=== PATIENT | female | born 1950 | race Caucasian/White ===

== ENCOUNTER 2020-01-15 19:53 | Emergency (ER) | payer MEDICARE, OTHER ==
--- NOTE | 2020-01-15 20:43 | EDM.PDOC ---
ED HPI GENERAL MEDICAL PROBLEM - General Chief Complaint: Cardiovascular Problem Stated Complaint: HEART ISSUES Time Seen by Provider: 01/15/20 20:20 Source of Information: Reports: Patient History Limitations: Reports: No Limitations - History of Present Illness INITIAL COMMENTS - FREE TEXT/NARRATIVE: 69-year-old female that had an MN and a stent last fall, recently had an increase in her losartan just under 2 weeks ago. She has been feeling well but since being out of the cabin for the last 3 days she has had some intermittent dizziness, weakness, and her monitor has been seeing her heart rate is irregular. She has had no chest pain or shortness of breath, mild nausea but no vomiting, no fevers or chills, no diarrhea, no peripheral edema. She was having some of the symptoms before she left but discussed it with her environmental services floor tech and he reassured her that she was probably play fine to go for the weekend. Tonight she just got too worried and came in. On arrival she looks excellent, vitals are normal, and she is comfortable and asymptomatic. Onset: Unknown/Unsure Associated Symptoms: Reports: Nausea/Vomiting (Mild intermittent nausea), Weakness. Denies: Confusion, Chest Pain, Cough, Fever/Chills, Headaches, Shortness of Breath - Related Data Allergies Allergy/AdvReac Type Severity Reaction Status Date / Time cyclobenzaprine Allergy Swollen Verified 01/15/20 20:14 [From Flexeril] Tongue levofloxacin [From Levaquin] Allergy Rectal Verified 01/15/20 20:14 Bleeding Penicillins Allergy Rash Verified 01/15/20 20:14 Home Meds: Home Meds Aspirin 81 mg PO DAILY 01/15/20 [History] Clopidogrel [Plavix] 75 mg PO DAILY 01/15/20 [History] Losartan [Cozaar] 25 mg PO DAILY 01/15/20 [History] Metoprolol Tartrate [Lopressor] 12.5 mg PO Q12HR 01/15/20 [History] amLODIPine [Norvasc] 5 mg PO DAILY 01/15/20 [History] Past Medical History HEENT History: Reports: Cataract Cardiovascular History: Reports: Arrhythmia, High Cholesterol, Hypertension, MN , Stents Other Cardiovascular History: MN 06/2019 Genitourinary History: Reports: Renal Calculus 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: Musculoskeletal History: Reports: Back Pain, Chronic Neurological History: Reports: Concussion, Migraines - Infectious Disease History Infectious Disease History: Reports: Chicken Pox, Measles - Past Surgical History HEENT Surgical History: Reports: Cataract Surgery Cardiovascular Surgical History: Reports: Coronary Artery Stent Female Surgical History: Reports: Section, Hysterectomy Social & Family History - Tobacco Use Smoking Status *Q: Never Smoker - Caffeine Use Caffeine Use: Reports: Coffee Caffeine Use Comment: coffee on Tuesdays - Recreational Drug Use Recreational Drug Use: No ED ROS GENERAL - Review of Systems Review Of Systems: See Below Constitutional: Reports: Malaise. Denies: Fever, Chills HEENT: Reports: No Symptoms Respiratory: Denies: Shortness of Breath, Pleuritic Chest Pain, Cough Cardiovascular: Reports: Palpitations (Mild intermittent palpitations). Denies : Chest Pain GI/Abdominal: Reports: Nausea. Denies: Vomiting : Reports: No Symptoms Skin: Reports: No Symptoms Neurological: Reports: Dizziness Psychiatric: Reports: No Symptoms ED EXAM, GENERAL - Physical Exam Exam: See Below Exam Limited By: No Limitations General Appearance: Alert, No Apparent Distress Eye Exam: Bilateral Eye: Normal Inspection Head: Atraumatic Neck: No: Carotid Bruit Respiratory/Chest: No Respiratory Distress, Lungs Clear Cardiovascular: Regular Rate, Rhythm, Extra Beats (Patient had 1 ectopic beat over the course of a full minute on auscultation, otherwise normal regular rhythm) GI/Abdominal: Soft, Non-Tender Extremities: Normal Inspection. No: Pedal Edema Neurological: Alert, Oriented, No Motor/Sensory Deficits Psychiatric: Normal Affect, Normal Mood Skin Exam: Warm, Dry Course - Vital Signs Last Recorded V/S: Last Vital Signs Temp 96.4 F L 01/15/20 20:17 Pulse 56 L 01/15/20 21:10 Resp 16 01/15/20 21:10 BP 140/77 01/15/20 21:10 Pulse Ox 99 01/15/20 21:10 - Orders/Labs/Meds Labs: Laboratory Tests 01/15/20 01/15/20 Range/Units 20:48 20:48 WBC 8.7 (4.5-11.0) K/uL RBC 4.97 (3.30-5.50) M/uL Hgb 13.9 (12.0-15.0) g/dL Hct 44.1 (36.0-48.0) % MCV 89 (80-98) fL MCH 28 (27-31) pg MCHC 32 (32-36) % Plt Count 363 (150-400) K/uL Neut % (Auto) 44 (36-66) % Lymph % (Auto) 38 (24-44) % Crisp % (Auto) 14 H (2-6) % Eos % (Auto) 3 (2-4) % Baso % (Auto) 1 (0-1) % Sodium 140 (140-148) mmol/L Potassium 4.2 (3.6-5.2) mmol/L Chloride 105 (100-108) mmol/L Carbon Dioxide 24 (21-32) mmol/L Anion Gap 11.2 (5.0-14.0) mmol/L BUN 23 H (7-18) mg/dL Creatinine 1.0 (0.6-1.0) mg/dL Est Cr Clr Drug Dosing 43.30 mL/min Estimated GFR (MDRD) 55 L (>60) Glucose 103 (74-106) mg/dL Calcium 8.6 (8.5-10.1) mg/dL Troponin I < 0.017 (0.000-0.056) ng/mL - Re-Assessments/Exams Free Text/Narrative Re-Assessment/Exam: 01/15/20 20:42 Had a long discussion with the patient about the likelihood of her being healthier than she feels especially with her current presentation with normal vitals and normal exam. She may be having some mild hypotension with the increase losartan or brief arrhythmias which are not occurring currently. We will draw CBC a BMP and troponin for reassurance. She will be kept on cardiac monitoring while awaiting lab results. 01/15/20 21:22 Patient remained asymptomatic and stable while in the emergency room, monitor showed occasional PVCs. Troponin is 0, CBC is normal, and electrolytes are normal. She has a slight elevation in BUN and minimal decrease in GFR, mild dehydration is possible so staying hydrated will be recommended. Otherwise activity as tolerated. Departure - Departure Time of Disposition: 21:29 Disposition: Home, Self-Care 01 Clinical Impression: Dizziness Instructions: Dizziness, [id number] Referrals: PCP,None [Primary Care Provider] - Forms: ED Department Discharge Care Plan Goals: Continue your current medications, stay hydrated, and increase activity as tolerated. Return anytime if worsening such as increased shortness of breath or chest pain. Consider rechecking with your environmental services floor tech or regular provider next week if symptoms are persistent. Sepsis Event Note - Evaluation Sepsis Screening Result: No Definite Risk - Focused Exam Vital Signs: Vital Signs Temp Pulse Resp BP Pulse Ox 01/15/20 21:10 56 L 16 140/77 99 01/15/20 20:46 64 16 163/90 H 96 01/15/20 20:17 96.4 F L 57 L 16 161/83 H 98 01/15/20 20:11 96.4 F L 57 L 16 161/83 H 98 Date Exam was Performed: 01/15/20 Time Exam was Performed: 22:16
== END 2020-01-15 21:34 | disposition home or self-care (01) ==
LOC: JP.ED 19:53
DX: R42 Dizziness and giddiness (principal); I10 Essential (primary) hypertension; I25.2 Old myocardial infarction; Z88.8 Allergy status to other drugs, medicaments and biological substances; Z88.1 Allergy status to other antibiotic agents; Z88.0 Allergy status to penicillin; Z79.02 Long term (current) use of antithrombotics/antiplatelets; Z79.82 Long term (current) use of aspirin; Z79.899 Other long term (current) drug therapy; Z95.5 Presence of coronary angioplasty implant and graft
CPT/HCPCS: 36415; 80048; 84484; 85025; 99283; 99284

== ENCOUNTER 2023-03-28 12:34 | Emergency (ER) | payer MEDICARE, OTHER ==
[2023-03-28] MEDS ORDERED: Sodium Chloride 0.9% 10 ML Syringe FLUSH PRN ×2 (12:42→14:36)
[2023-03-28] MEDS ORDERED: Aspirin 81 MG Tab.Chew PO ONE (12:43)
[2023-03-28 12:55] LABS: BASOPHILS ABSOLUTE AUTO 0.11 K/uL (0.00-0.10); BASOPHILS PERCENT AUTO 1.2 % (0.1-1.3); EOSINOPHILS ABSOLUTE AUTO 0.18 K/uL (0.00-0.40); HEMATOCRIT 46.9 % (34.3-46.0); HEMOGLOBIN 15.1 g/dL (11.2-15.5); IMMATURE GRAN ABSOLUTE AUTO 0.06 K/uL (0.00-0.23); IMMATURE GRAN PERCENT AUTO 0.7 % (0.0-0.7); LYMPHOCYTES ABSOLUTE AUTO 2.94 K/uL (0.8-3.3); LYMPHOCYTES PERCENT AUTO 32.6 % (11.4-47.7); MEAN CORPUSCULAR HEMOGLOBIN 28.3 pg (31.6-35.5); MEAN CORPUSCULAR HGB CONC 32.2 g/dL (31.6-35.5); MONOCYTES ABSOLUTE AUTO 0.98 K/uL (0.20-0.90); MONOCYTES PERCENT AUTO 10.9 % (3.3-12.6); NEUTROPHILS ABSOLUTE AUTO 4.76 K/uL (1.0-7.6); NEUTROPHILS PERCENT AUTO 52.6 % (40.0-78.1); PLATELET COUNT,PLT 372 K/uL (130-375); RED BLOOD CELL COUNT 5.33 M/uL (3.77-5.24)
[2023-03-28 13:13] LABS: PROTHROMBIN TIME 9.7 sec (9.2-10.6); PTT,PARTIAL THROMBOPLSTIN TIME 23.6 sec (21.8-27.3)
[2023-03-28 13:16] LABS: ANION GAP 13.1 mmol/L (5.0-14.0); CALCIUM 9.1 mg/dL (8.5-10.1); EST CRCL DRUG DOSING (CG) 41.45 mL/min; POTASSIUM,K 4.1 mmol/L (3.6-5.2); TROPONIN I HIGH SENSITIVITY 5.2 pg/mL (<=60.3)
[2023-03-28] MEDS ORDERED: Sodium Chloride 0.9% 75 ML IV ONE (14:36)
[2023-03-28] MEDS ORDERED: Iopamidol 755 Mg/ML 100 ML Bottle IV SCH (14:45)
== END 2023-03-28 16:06 | disposition home or self-care (01) ==
LOC: JP.ED 12:34
DX: I25.10 Atherosclerotic heart disease of native coronary artery without angina pectoris (principal); R91.1 Solitary pulmonary nodule; Z95.5 Presence of coronary angioplasty implant and graft; I25.2 Old myocardial infarction; I10 Essential (primary) hypertension; Z79.82 Long term (current) use of aspirin; Z79.899 Other long term (current) drug therapy; Z88.0 Allergy status to penicillin; Z88.8 Allergy status to other drugs, medicaments and biological substances
CPT/HCPCS: 36415; 71045; 71275; 80048; 84484; 85025; 85379; 85610; 85730; 93005; 99285; A9270; J3490; Q9967